=== PATIENT | male | born 1955 | race Caucasian/White ===

== ENCOUNTER 2020-09-09 15:12 | Inpatient (IN) | payer SELFPAY ==
[~2020-09-09] VITALS: Ht 193 cm; Wt 113.4 kg
[2020-09-09] MEDS ORDERED: ASPIRIN 81 MG CHEW TAB PO ONE (15:45)
[2020-09-09 16:03] LABS: BASOPHILS # (AUTO) 0.1 (0.0-0.1); BASOPHILS % 0.8 % (0.0-1.0); EOSINOPHILS # (AUTO) 0.1 (0.0-0.4); EOSINOPHILS % 1.6 % (0.0-6.0); HEMATOCRIT 36.2 % (38.2-49.6); HEMOGLOBIN 11.1 g/dL (14.0-18.0); LYMPHOCYTES # (AUTO) 0.7 (1.0-3.2); LYMPHOCYTES % 8.3 % (18.0-39.1); MEAN CORPUSCULAR HEMOGLOBIN 25.3 pg (28-32); MEAN CORPUSCULAR HGB CONC 30.7 g/dL (31-35); MEAN CORPUSCULAR VOLUME 82.6 fL (81-99); MONOCYTES # (AUTO) 0.6 (0.2-0.8); MONOCYTES % 6.9 % (4.4-11.3); NEUTROPHILS # (AUTO) 6.5 (2.1-6.9); NEUTROPHILS % 81.9 % (38.7-80.0); PLATELET COUNT 329 x10e3/uL (140-360); RED BLOOD COUNT 4.38 x10e6/uL (4.3-5.7)
[2020-09-09 16:08] LABS: CLARITY,URINE CLEAR (CLEAR); COLOR,URINE YELLOW (YELLOW); KETONES,URINE NEGATIVE (NEGATIVE); LEUKOCYTE ESTERASE ,URINE NEGATIVE (NEGATIVE); NITRITE,URINE NEGATIVE (NEGATIVE); PROTEIN,URINE DIPSTICK >=300 (NEGATIVE); URINE UROBILINOGEN 0.2 mg/dL (0.2 - 1)
[2020-09-09 16:20] LABS: EPITHELIAL CELLS,URINE RARE /LPF; RBC,URINE 0-5 /HPF (0-5); WBC,URINE (MAN) 0-5 /HPF (0-5)
[2020-09-09 16:21] LABS: ALBUMIN 3.6 g/dL (3.5-5.0); ANION GAP 19.6 mmol/L (8-16); CALCIUM 10.6 mg/dL (8.4-10.2); CREATININE, SERUM 4.77 mg/dL (0.72-1.25); MUCUS,URINE FEW (RARE); POTASSIUM 4.6 mmol/L (3.5-5.1)
[2020-09-09] MEDS ORDERED: SODIUM CHLORIDE 0.9% 1000ML 1,000 ML IV SCH (17:45)
[2020-09-09] MEDS ORDERED: ONDANSETRON HCL INJ 2MG/ML 2ML 2 MG/ML VIAL IV PRN (17:45)
[2020-09-09 20:37] VITALS: BP 163/83
[2020-09-09 20:47] VITALS: BP 163/83
[2020-09-09] MEDS ORDERED: TYLENOL ARTHRITIS PO (21:39)
[2020-09-09] MEDS ORDERED: FEROSUL325 MG PO (21:41)
[2020-09-09] MEDS ORDERED: MULTI-VITAMIN1 EACH PO (21:41)
[2020-09-09] MEDS: ZOLPIDEM TARTRATE 5 MG TAB PO PRN (22:04)
[2020-09-09 22:16] VITALS: BP 163/83
[2020-09-09 22:32] LABS: CREATINE KINASE MB 3.1 ng/mL (0-5.0)
[2020-09-09] MEDS ORDERED: FUROSEMIDE INJ 10 MG/ML 4 ML VIAL IV ONE (23:30)
[2020-09-10] VITALS (7 sets, daily range): BP systolic 118–137; BP diastolic 86–92
[2020-09-10] MEDS: ACETAMINOPHEN 325 MG TAB PO PRN ×2 (01:00→12:28)
[2020-09-10 05:36] LABS: BASOPHILS # (AUTO) 0.1 (0.0-0.1); BASOPHILS % 0.6 % (0.0-1.0); EOSINOPHILS # (AUTO) 0.1 (0.0-0.4); EOSINOPHILS % 0.8 % (0.0-6.0); HEMATOCRIT 37.8 % (38.2-49.6); HEMOGLOBIN 11.7 g/dL (14.0-18.0); LYMPHOCYTES # (AUTO) 0.7 (1.0-3.2); LYMPHOCYTES % 8.8 % (18.0-39.1); MEAN CORPUSCULAR HEMOGLOBIN 25.4 pg (28-32); MEAN CORPUSCULAR VOLUME 82.2 fL (81-99); MONOCYTES # (AUTO) 0.5 (0.2-0.8); MONOCYTES % 6.6 % (4.4-11.3); NEUTROPHILS # (AUTO) 6.5 (2.1-6.9); NEUTROPHILS % 82.6 % (38.7-80.0); PLATELET COUNT 324 x10e3/uL (140-360); RED CELL DISTRIBUTION WIDTH 17.8 % (11.7-14.4)
[2020-09-10 06:13] LABS: ALBUMIN 3.6 g/dL (3.5-5.0); ALBUMIN/GLOBULIN RATIO 0.9 (0.8-2.0); ANION GAP 22.9 mmol/L (8-16); CHOL/HDL RATIO 2.9 (3.9-4.7); CREATININE, SERUM 4.82 mg/dL (0.72-1.25); POTASSIUM 4.9 mmol/L (3.5-5.1)
[2020-09-10 06:33] LABS: CREATINE KINASE MB 2.9 ng/mL (0-5.0)
[2020-09-10 07:25] LABS: FERRITIN 50.95 ng/mL (21.81-274.66)
[2020-09-10] MEDS: PANTOPRAZOLE SOD 40 MG TABEC PO SCH (11:35)
[2020-09-10] MEDS ORDERED: OYST-CAL-D 500MG TABLET PO ONE (12:00)
[2020-09-10] MEDS: SODIUM BICARBONATE 650 MG TAB PO SCH (18:51)
[2020-09-10] MEDS ORDERED: IRON SUCROSE 100 MG in SODIUM CHLORIDE 0.9% 100 ML 100 ML IV SCH (21:30)
[2020-09-10] MEDS: ZOLPIDEM TARTRATE 5 MG TAB PO PRN (21:30)
[2020-09-11] VITALS (8 sets, daily range): BP systolic 103–123; BP diastolic 71–83
[2020-09-11 04:50] LABS: BASOPHILS # (AUTO) 0.1 (0.0-0.1); BASOPHILS % 0.7 % (0.0-1.0); EOSINOPHILS # (AUTO) 0.2 (0.0-0.4); HEMATOCRIT 34.4 % (38.2-49.6); HEMOGLOBIN 10.5 g/dL (14.0-18.0); LYMPHOCYTES # (AUTO) 0.7 (1.0-3.2); LYMPHOCYTES % 8.6 % (18.0-39.1); MEAN CORPUSCULAR HEMOGLOBIN 25.3 pg (28-32); MEAN CORPUSCULAR HGB CONC 30.5 g/dL (31-35); MEAN CORPUSCULAR VOLUME 82.9 fL (81-99); MONOCYTES # (AUTO) 0.6 (0.2-0.8); MONOCYTES % 7.7 % (4.4-11.3); NEUTROPHILS # (AUTO) 6.1 (2.1-6.9); NEUTROPHILS % 80.6 % (38.7-80.0); PLATELET COUNT 277 x10e3/uL (140-360); RED BLOOD COUNT 4.15 x10e6/uL (4.3-5.7); RED CELL DISTRIBUTION WIDTH 17.9 % (11.7-14.4)
[2020-09-11 05:09] LABS: ANION GAP 19.4 mmol/L (8-16); CALCIUM 8.9 mg/dL (8.4-10.2); CREATININE, SERUM 5.33 mg/dL (0.72-1.25); PHOSPHORUS 5.1 MG/DL (2.3-4.7); POTASSIUM 4.4 mmol/L (3.5-5.1)
[2020-09-11] MEDS: ACETAMINOPHEN 325 MG TAB PO PRN ×2 (05:53→17:52)
[2020-09-11] MEDS: SODIUM FERRIC GLUCONATE COMPLX 125 MG in SODIUM CHLORIDE 0.9% 100 ML 100 ML IV SCH (08:44)
[2020-09-11] MEDS: PANTOPRAZOLE SOD 40 MG TABEC PO SCH (08:44)
[2020-09-11] MEDS: SODIUM BICARBONATE 650 MG TAB PO SCH ×2 (08:44→16:47)
[2020-09-11] MEDS ORDERED: SODIUM CHLORIDE 0.9% 1000ML 500 ML IV ONE (16:15)
[2020-09-11 19:14] LABS: TOTAL PROTEIN, URINE 85.8 mg/dL (1-14)
[2020-09-11 19:40] LABS: TOTAL PROTEIN 24HR, URINE 2402.4 mg/24hr (50-100)
[2020-09-11] MEDS: ZOLPIDEM TARTRATE 5 MG TAB PO PRN (20:24)
[2020-09-12] VITALS (10 sets, daily range): BP systolic 111–157; BP diastolic 75–88
[2020-09-12] MEDS: ACETAMINOPHEN 325 MG TAB PO PRN ×3 (00:39→21:30)
[2020-09-12 06:11] LABS: BASOPHILS # (AUTO) 0.1 (0.0-0.1); EOSINOPHILS # (AUTO) 0.2 (0.0-0.4); EOSINOPHILS % 2.2 % (0.0-6.0); HEMATOCRIT 34.1 % (38.2-49.6); HEMOGLOBIN 10.1 g/dL (14.0-18.0); LYMPHOCYTES # (AUTO) 0.6 (1.0-3.2); LYMPHOCYTES % 7.6 % (18.0-39.1); MEAN CORPUSCULAR HGB CONC 29.6 g/dL (31-35); MEAN CORPUSCULAR VOLUME 84.4 fL (81-99); MONOCYTES # (AUTO) 0.6 (0.2-0.8); MONOCYTES % 8.2 % (4.4-11.3); NEUTROPHILS # (AUTO) 5.8 (2.1-6.9); NEUTROPHILS % 80.6 % (38.7-80.0); PLATELET COUNT 244 x10e3/uL (140-360); RED BLOOD COUNT 4.04 x10e6/uL (4.3-5.7); RED CELL DISTRIBUTION WIDTH 18.1 % (11.7-14.4)
[2020-09-12 06:32] LABS: CALCIUM 8.5 mg/dL (8.4-10.2); CREATININE, SERUM 4.88 mg/dL (0.72-1.25)
[2020-09-12] MEDS: PANTOPRAZOLE SOD 40 MG TABEC PO SCH (08:38)
[2020-09-12] MEDS: SODIUM BICARBONATE 650 MG TAB PO SCH ×2 (08:38→16:11)
[2020-09-12] MEDS: SODIUM FERRIC GLUCONATE COMPLX 125 MG in SODIUM CHLORIDE 0.9% 100 ML 100 ML IV SCH (10:37)
[2020-09-12] MEDS ORDERED: MIDAZOLAM HCL 2 MG/2 ML VIAL ONE (13:25)
[2020-09-12] MEDS ORDERED: FENTANYL CITRATE/PF 100MCG/2 ML INJ ONE (13:25)
[2020-09-12] MEDS ORDERED: CEFTRIAXONE 1 GM VIAL IV ONE (16:00)
[2020-09-12] MEDS ORDERED: CEFTRIAXONE 1 GM in SODIUM CHLORIDE 0.9% 50ML 50 ML IV ONE (16:00)
[2020-09-12] MEDS: FUROSEMIDE INJ 10 MG/ML 2 ML VIAL IV SCH (18:05)
[2020-09-13] VITALS (12 sets, daily range): BP systolic 106–133; BP diastolic 80–90
[2020-09-13] MEDS: FUROSEMIDE INJ 10 MG/ML 2 ML VIAL IV SCH ×2 (05:07→18:45)
[2020-09-13 07:06] LABS: ANION GAP 17.8 mmol/L (8-16); CALCIUM 8.3 mg/dL (8.4-10.2); CREATININE, SERUM 4.62 mg/dL (0.72-1.25); POTASSIUM 3.8 mmol/L (3.5-5.1)
[2020-09-13] MEDS: PANTOPRAZOLE SOD 40 MG TABEC PO SCH (07:30)
[2020-09-13] MEDS: SODIUM BICARBONATE 650 MG TAB PO SCH ×2 (08:14→16:51)
[2020-09-13] MEDS ORDERED: IOPAMIDOL 300MG/ML 50ML INFUS..BTL IV ONE ×2 (08:54→09:58)
[2020-09-13] MEDS ORDERED: B&O 60MG R/S 60 MG SUPP PR ONE (08:54)
[2020-09-13] MEDS: ACETAMINOPHEN 325 MG TAB PO PRN ×2 (13:44→20:07)
[2020-09-13] MEDS ORDERED: DEXAMETHASONE SOD PHOS INJ 4 MG/ML VIAL ONE (13:46)
[2020-09-13] MEDS ORDERED: LIDOCAINE HCL 2% LOCAL INJ 5 ML SDV VIAL INJ ONE (13:46)
[2020-09-13] MEDS ORDERED: SEVOFLURANE INHAL SOLN 250 ML PEN BTL ONE (13:46)
[2020-09-13] MEDS ORDERED: POVIDONE IODINE 0.05% 0.05 % ML PO ONE (13:46)
[2020-09-13] MEDS ORDERED: PROPOFOL IV EMULSION 10 MG/ML 20 ML VIAL ONE (13:46)
[2020-09-13] MEDS ORDERED: ONDANSETRON HCL INJ 2MG/ML 2ML 2 MG/ML VIAL ONE (13:46)
[2020-09-13] MEDS: METOPROLOL SUCCINATE 25 MG TAB XL PO SCH (14:53)
[2020-09-13] MEDS ORDERED: SODIUM FERRIC GLUCONATE COMPLX 125 MG in SODIUM CHLORIDE 0.9% 100 ML 100 ML IV SCH (16:00)
[2020-09-13] MEDS: ZOLPIDEM TARTRATE 5 MG TAB PO PRN (21:27)
[2020-09-14] VITALS: BP 100/77
[2020-09-14 04:00] VITALS: BP 127/87
[2020-09-14] MEDS: ACETAMINOPHEN 325 MG TAB PO PRN ×2 (04:10→11:06)
[2020-09-14] MEDS: FUROSEMIDE INJ 10 MG/ML 2 ML VIAL IV SCH (05:57)
[2020-09-14 07:34] VITALS: BP 124/90
[2020-09-14 07:59] VITALS: BP 124/90
[2020-09-14] MEDS: SODIUM BICARBONATE 650 MG TAB PO SCH (08:18)
[2020-09-14] MEDS: PANTOPRAZOLE SOD 40 MG TABEC PO SCH (08:18)
[2020-09-14] MEDS: METOPROLOL SUCCINATE 25 MG TAB XL PO SCH (08:19)
[2020-09-14 09:39] LABS: ANION GAP 16.5 mmol/L (8-16); CALCIUM 8.5 mg/dL (8.4-10.2); CREATININE, SERUM 4.89 mg/dL (0.72-1.25); POTASSIUM 4.5 mmol/L (3.5-5.1)
[2020-09-14 11:30] VITALS: BP 114/77
[2020-09-14] MEDS ORDERED: SODIUM BICARBO650 MG PO (14:00)
[2020-09-14] MEDS ORDERED: LASIX20 MG PO (14:00)
[2020-09-14] MEDS ORDERED: PROTONIX40 MG/ML PO (14:00)
[2020-09-14] MEDS ORDERED: TOPROL XL25 MG PO (14:00)
[2020-09-14] MEDS ORDERED: ONDANSETRON HCL 4 MG ORAL DISINTEGRATING TAB PO PRN (14:30)
== END 2020-09-14 15:05 | disposition home or self-care (01) | DRG 291 ==
LOC: ER 16:02 → ERHOLD 17:51 → MED/SURG3 20:21
PROVIDERS: ADMIT Internal Medicine; ATTEND Internal Medicine
PROC: 0T9B8ZZ Drainage of Bladder, Via Natural or Artificial Opening Endoscopic (ICD-10-PCS; 2020-09-13)
PROC: BT1F1ZZ Fluoroscopy of Left Kidney, Ureter and Bladder using Low Osmolar Contrast (ICD-10-PCS; principal; 2020-09-13 10:00)
DX: I13.0 Hypertensive heart and chronic kidney disease with heart failure and stage 1 through stage 4 chronic kidney disease, or unspecified chronic kidney disease (principal); I50.23 Acute on chronic systolic (congestive) heart failure; J96.01 Acute respiratory failure with hypoxia; N17.9 Acute kidney failure, unspecified; E87.2 Acidosis; N13.2 Hydronephrosis with renal and ureteral calculous obstruction; D50.9 Iron deficiency anemia, unspecified; D71 Functional disorders of polymorphonuclear neutrophils; R80.9 Proteinuria, unspecified; N18.9 Chronic kidney disease, unspecified; I35.0 Nonrheumatic aortic (valve) stenosis; B39.9 Histoplasmosis, unspecified
CPT/HCPCS: 36415; 51700; 71045; 71250; 74150; 74420; 76770; 78580; 80048; 80053; 80061; 81001; 81050; 82550; 82553; 82607; 82728; 82746; 83540; 83735; 83880; 84100; 84156; 84165; 84443; 84466; 84484; 85025; 85379; 86021; 86039; 86160; 86225; 87040; 87400; 93005; 93306; 99284; A9540; C1758; J0696; J1100; J1940; J2001; J2250; J2405; J2916; J3010; J7030; U0002